=== PATIENT | female | born 1990 | race American Indian/Alaskan Native ===

== ENCOUNTER 2018-02-23 13:13 | Emergency (ER) | payer MEDICAID ==
[2018-02-23 13:27] VITALS: BP 108/71
[2018-02-23 14:53] LABS: HCG Qualitative,Urine Positive (Negative)
--- NOTE | 2018-02-23 14:56 | Emergency Department Report ---
Chief Complaint: Abdominal Pain Stated Complaint: ABD DISCOMFORT 8 WKS PREG Time Seen by Provider: 02/23/18 14:50 - HPI History of Present Illness: 27-year-old AA female presents to the emergency department for evaluation of her . She believes herself to be about 8 weeks . Starting last night she had some very sharp lower abdominal and/or pelvic discomfort that has since resolved. No vaginal bleeding. She does have some thick white vaginal discharge but says this has been going on for weeks. She [facility] to [facility] care. With this she is with one previous done for medical reasons. She is on vitamins. No fever, nausea, vomiting, vaginal bleeding. - ROS Review of Systems: Positive for abd/pelvic cramping, vaginal discharge Negative for vaginal bleeding, N/V, fever - Exam Vital Signs: Vital Signs 02/23/18 13:19 Temperature 98.3 F Pulse Rate 73 Blood Pressure 108/71 O2 Sat by Pulse 100 Oximetry Physical Exam: Heart and lung sounds are normal to auscultation. She does not appear in any acute distress. MSE screening note: Focused history and physical exam performed. Due to findings the following was ordered: Patient's urinalysis does show that she is . She will have a obstetrical ultrasound to confirm intrauterine and assess for any abnormalities. ED Disposition for MSE Condition: Stable Instructions: Abdominal Pain (ED) Referrals: ARLEEN BUSTAMANTE MD [Primary Care Provider] - 3-5 Days
[2018-02-23 15:03] LABS: Bacteria,Urine 1+ /HPF (Negative); Bilirubin,Urine NEG (Negative); Blood,Urine NEG (Negative); Color,Urine Yellow (Yellow); Mucus,Urine 3+ /HPF; Protein,Urine <15 mg/dL mg/dL (Negative); Urobilinogen,Urine < 2.0 mg/dL (<2.0)
--- NOTE | 2018-02-23 15:25 | Emergency Department Report ---
ED HPI - General Chief complaint: Abdominal Pain Stated complaint: ABD DISCOMFORT 8 WKS PREG Time Seen by Provider: 02/23/18 14:50 Source: patient Mode of arrival: Ambulatory Limitations: No Limitations - History of Present Illness Initial comments: This is a 27-year-old female nontoxic, well nourished in appearance, no acute signs of distress presents to the ED with c/o of sharp/cramping pelvic pain x1 day. Patient denies any vaginal bleeding or any radiation of pain. Patient is also c/o of white nonodor vaginal discharge. Patient denies any nausea, vomiting, chest pain, shortness of breathe, fever, chills, headache, stiff neck, numbness, tingling. Patient denies any urinary symptoms. Patient denies any allergies. Denies significant PMH. MD Complaint: abdominal pain -: Last night Location: pelvis Radiation: none Severity: mild Severity scale (0 -10): 8 Quality: aching Improves with: none Worsens with: none Associated symptoms: abdominal pain. denies: nausea/vomiting, vaginal bleeding , vaginal discharge, dysuria, headache, vision changes, malaise, dysparuenia, rash, seizure, shortness of breath, syncope, weakness Vaginal bleeding: none Number of weeks : 8 Pre- care: followed by OB - Related Data Allergies Allergy/AdvReac Type Severity Reaction Status Date / Time No Known Allergies Allergy Unverified 02/23/18 13:27 ED Review of Systems ROS: Stated complaint: ABD DISCOMFORT 8 WKS PREG Other details as noted in HPI Constitutional: denies: chills, fever Eyes: denies: eye pain, eye discharge, vision change ENT: denies: ear pain, throat pain Respiratory: denies: cough, shortness of breath, wheezing Cardiovascular: denies: chest pain, palpitations Endocrine: no symptoms reported Gastrointestinal: abdominal pain. 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 Absent: tenderness, meningismus, lymphadenopathy - Respiratory Respiratory exam: Present: normal lung sounds bilaterally. Absent: respiratory distress, wheezes, rales, rhonchi, stridor, chest wall tenderness, accessory muscle use, decreased breath sounds, prolonged expiratory - Cardiovascular Cardiovascular Exam: Present: regular rate, normal rhythm, normal heart sounds. Absent: bradycardia, tachycardia, irregular rhythm, systolic murmur, diastolic murmur, rubs, gallop - GI/Abdominal GI/Abdominal exam: Present: soft, normal bowel sounds. Absent: distended, tenderness, guarding, rebound, rigid, diminished bowel sounds - Expanded GI/Abdominal Exam Expanded GI/Abdominal exam: Absent: psoas sign, obturator sign, heel tap sign, Johnston's sign, Rovsing's sign, tenderness at [place]bur[place]'s Point, ascites - Rectal Rectal exam: Present: deferred - External exam: Present: normal external exam, other (automobile radio repairer Crystal present during exam). Absent: erythema, swelling, lesions, lacerations, ecchymosis, bleeding Speculum exam: Present: normal speculum exam, cervical discharge (white with no odort), other (automobile radio repairer Crystal present during exam). Absent: erythema, vaginal discharge, vaginal bleeding, foreign body, tissue, laceration Bi-manual exam: Present: normal bi-manual exam, other (automobile radio repairer Crystal present during exam). Absent: cervical motion tendernes, adnexal tenderness, adnexal mass, uterine enlargement, uterine tenderness - Extremities Exam Extremities exam: Present: normal inspection, full ROM, normal capillary refill - Back Exam Back exam: Present: normal inspection, full ROM - Neurological Exam Neurological exam: Present: alert, oriented X3, normal gait - Psychiatric Psychiatric exam: Present: normal affect, normal mood - Skin Skin exam: Present: warm, dry, intact, normal color. Absent: rash ED Course Vital Signs 02/23/18 13:19 Temperature 98.3 F Pulse Rate 73 Blood Pressure 108/71 O2 Sat by Pulse 100 Oximetry - Reevaluation(s) Reevaluation #1: 02/23/18 15:27 Patient is speaking in full sentences with no signs of distress noted. - Consultations Consultation #1: Patient has been consulted with Dr. Sawyer about patient history, physical exam, and labs/US report and examined and screened patient and agrees to ED plan of care and discharge plan of care. ED Medical Decision Making - Medical Decision Making This is a 27-year-old female that presents with demise at 8 weeks. Patient is stable and was examined by me and Dr. Sawyer. Normal abdominal exam. US OB obtained and dictated by the radiologist. Quantative serum test obtained. Patient notified of the US report with no questions noted by the patient. Patient did have 2 ultrasounds done with a positive heart beat in the [facility]/ [facility] office but in the ED radiologist report shows no heart beat. Patient did refuse a transvaginal US because she stated it caused her to have a miscarriage last night. There is no vaginal bleeding. Wet prep obtained and within normal limits. GC pending. I asked the patient for her BAND DIRECTOR contact information and while doing that the patient became very upset after I told her about the US report and patient stated that she "just wants to go home". I instructed and educated the patient of my concerns about wanting to get her BAND DIRECTOR involved but patient left AMA. Critical care attestation.: If time is entered above; I have spent that time in minutes in the direct care of this critically ill patient, excluding procedure time. ED Disposition Clinical Impression: demise Disposition: DC-07 LEFT AGAINST MED ADVICE Is pt being admited?: No Condition: Stable Additional Instructions: Follow-up with a BAND DIRECTOR in 3-5 days or if symptoms worsen and continue return to emergency room as soon as possible.
--- NOTE | 2018-02-23 17:00 | Ultrasound Report ---
FINAL REPORT PROCEDURE: Obstetrical ultrasound. TECHNIQUE: Real-time transabdominal sonography of the uterus, placenta, amniotic fluid, adnexa, and fetus was performed with image documentation. Measurements were obtained to determine age/size. M-mode Doppler was used to document heartbeat. CPT 93400 HISTORY: Abdominal pain, . COMPARISON: No prior studies are available for comparison. FINDINGS: The patient refused a transvaginal exam. The uterus measures 9.4 centimeters x 6.3 centimeters x 7.5 centimeters. The myometrium appears homogeneous. There is an intrauterine gestational sac. A pole and yolk sac are visible. The crown-rump length measurement is 17.1 millimeters. This indicates a menstrual age of 8 weeks 1 day. There is no detectable cardiac activity. Both ovaries appear normal in size. There is normal color flow signal in both ovaries. There is no fluid in the cul-de-sac. IMPRESSION: Intrauterine demise at 8 weeks 1 day.
== END 2018-02-23 17:33 | disposition left against medical advice (07) ==
LOC: ED 13:13
DX: O36.4XX0 Maternal care for intrauterine death, not applicable or unspecified (principal); O99.321 Drug use complicating pregnancy, first trimester; F12.10 Cannabis abuse, uncomplicated; Z3A.08 8 weeks gestation of pregnancy
CPT/HCPCS: 36415; 76801; 81001; 81025; 84702; 87210; 87591

== ENCOUNTER 2018-04-10 05:03 | Emergency (ER) | payer MEDICAID ==
[2018-04-10 05:16] VITALS: BP 112/76
[2018-04-10 05:54] LABS: Basophils % (Auto) 0.4 % (0.0-1.8); Eosinophils # (Auto) 0.2 K/mm3 (0.0-0.4); Eosinophils % (Auto) 3.1 % (0.0-4.3); Hematocrit 33.4 % (30.3-42.9); Hemoglobin 11.4 gm/dl (10.1-14.3); Lymphocytes # (Auto) 2.3 K/mm3 (1.2-5.4); Mean Corpuscular HGB Conc 34 % (30-34); Mean Corpuscular Hemoglobin 33 pg (28-32); Mean Corpuscular Volume 97 fl (79-97); Monocytes # (Auto) 0.5 K/mm3 (0.0-0.8); Monocytes % (Auto) 6.7 % (0.0-7.3); Platelet Count 190 K/mm3 (140-440); Red Blood Count 3.45 M/mm3 (3.65-5.03); Red Cell Distribution Width 13.2 % (13.2-15.2)
[2018-04-10 06:42] LABS: Bacteria,Urine 1+ /HPF (Negative); Bilirubin,Urine NEG (Negative); Blood,Urine MOD (Negative); Color,Urine Yellow (Yellow); Mucus,Urine 2+ /HPF; Protein,Urine <15 mg/dL mg/dL (Negative)
[2018-04-10 07:01] LABS: HCG Qualitative,Urine Positive (Negative)
== END 2018-04-10 05:30 | disposition left against medical advice (07) ==
LOC: ED 05:03
DX: M25.552 Pain in left hip (principal); F12.90 Cannabis use, unspecified, uncomplicated; Z53.21 Procedure and treatment not carried out due to patient leaving prior to being seen by health care provider
CPT/HCPCS: 36415; 81001; 81025; 85025

== ENCOUNTER 2018-10-31 01:42 | Emergency (ER) | payer MEDICAID, OTHER ==
--- NOTE | 2018-10-31 05:38 | Emergency Department Report ---
ED ENT HPI - General Chief complaint: Dental/Oral Stated complaint: ABSCESS IN MOUTH Time Seen by Provider: 10/31/18 05:34 Source: patient Mode of arrival: Ambulatory Limitations: No Limitations - History of Present Illness Initial comments: pt is a 28 y/o aaf who presents for dental carries pain x 1 week seen by employee health provided rx augmentin has taken one tab, rx tramadol has taken 2 tabs, states aching persist, has not seen dentist in 1 yr, symptoms started 1 yr ago. with dental carries to Number: 11, now chronic pain with same, pain is 5/ 10 aching exacerbated by hot and cold stimuli , and eating on affected side, pt is tolerating po on oppposite side however , there is no fever no chills no throat or ear pain no mouth or facial swelling. MD complaint: tooth pain Onset/Timin -: week(s) Location: tooth # (11) Severity: moderate Severity scale (0 -10): 6 Quality: aching Consistency: constant Worsens with: none Context- Dental: history of dental caries, poor dental care Associated Symptoms: toothache. denies: fever, cough, gum swelling, pain with swallowing, sore throat, tinnitus, hearing loss, discharge from ear, rhinorrhea - Related Data Previous Rx's Medication Instructions Recorded Last Taken Type Chlorhexidine Mouthwash [Peridex] 15 ml MM BID PRN #1 bottle 10/31/18 Unknown Rx Allergies Allergy/AdvReac Type Severity Reaction Status Date / Time No Known Allergies Allergy Verified 04/10/18 05:08 ED Dental HPI - General Chief complaint: Dental/Oral Stated complaint: ABSCESS IN MOUTH Time Seen by Provider: 10/31/18 05:34 Source: patient Mode of arrival: Ambulatory Limitations: No Limitations - Related Data Previous Rx's Medication Instructions Recorded Last Taken Type Chlorhexidine Mouthwash [Peridex] 15 ml MM BID PRN #1 bottle 10/31/18 Unknown Rx Allergies Allergy/AdvReac Type Severity Reaction Status Date / Time No Known Allergies Allergy Verified 04/10/18 05:08 ED Review of Systems ROS: Stated complaint: ABSCESS IN MOUTH Other details as noted in HPI Constitutional: denies: chills, fever Eyes: denies: eye pain, eye discharge, vision change ENT: dental pain Respiratory: denies: cough, shortness of breath, wheezing Cardiovascular: denies: chest pain, palpitations Endocrine: no symptoms reported Gastrointestinal: denies: abdominal pain, nausea, diarrhea Genitourinary: denies: urgency, dysuria, discharge Musculoskeletal: denies: back pain, joint swelling, arthralgia Skin: denies: rash, lesions Neurological: denies: headache, weakness, paresthesias Psychiatric: denies: anxiety, depression Hematological/Lymphatic: denies: easy bleeding, easy bruising ED Past Medical Hx - Past Medical History Previous Medical History?: Yes Additional medical history: Anemia with preganacy, - Surgical History Additional Surgical History: @ 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, left ankle sx - Social History Smoking Status: Never Smoker Substance Use Type: None - Medications Home Medications: Home Medications Medication Instructions Recorded Confirmed Last Taken Type Chlorhexidine Mouthwash [Peridex] 15 ml MM BID PRN #1 bottle 10/31/18 Unknown Rx ED Physical Exam - General Limitations: No Limitations General appearance: alert, in no apparent distress - Head Head exam: Present: atraumatic, normocephalic - Eye Eye exam: Present: normal appearance, PERRL, EOMI Pupils: Present: normal accommodation - ENT ENT exam: Present: mucous membranes moist, TM's normal bilaterally, normal external ear exam - Expanded ENT Exam Expanded Mouth exam: Absent: trismus Teeth exam: Present: dental caries (11), fractured tooth # (11), dental tenderness # (11) Throat exam: Positive: normal inspection, other (uvula midline no stridor ). Negative: tonsillar erythema, tonsillomegaly, tonsillar exudate, R peritonsillar mass, L peritonsillar mass - Neck Neck exam: Present: normal inspection, full ROM. Absent: tenderness, meningismus, lymphadenopathy, thyromegaly - Respiratory Respiratory exam: Present: normal lung sounds bilaterally. Absent: respiratory distress, wheezes, stridor, chest wall tenderness - Cardiovascular Cardiovascular Exam: Present: regular rate, normal rhythm, normal heart sounds. Absent: systolic murmur, diastolic murmur, rubs, gallop - GI/Abdominal GI/Abdominal exam: Present: soft, normal bowel sounds - Rectal Rectal exam: Present: deferred - Extremities Exam Extremities exam: Present: normal inspection - Back Exam Back exam: Present: normal inspection, full ROM. Absent: tenderness, CVA tenderness (R), CVA tenderness (L) - Neurological Exam Neurological exam: Present: alert, oriented X3, CN II-XII intact, normal gait - Psychiatric Psychiatric exam: Present: normal affect, normal mood - Skin Skin exam: Present: warm, dry, intact, normal color. Absent: rash ED Course Vital Signs 10/31/18 01:46 Temperature 98.7 F Pulse Rate 59 L Respiratory 16 Rate Blood Pressure 124/70 O2 Sat by Pulse 99 Oximetry - Nerve Block Consent Obtained: verbal consent Time Out Performed: Yes Local Anesthetic Used: Lidocaine 1% Amount of anesthesia used: 1 Side: left Nerve Blocks: other (dental block ) Procedure Successful: Yes Complications: none Patient Tolerated Procedure: well Additional Comments: dental block with lidocaine 1% 1 cc Infraorbital successful block to pain improved /relieved bleeding is controlled, pt tolerated procedure with minimal distress. ED Medical Decision Making - Medical Decision Making this case is infected dental carries pt currently rx augment 875 mg po bid for 10 days has taken 1 tab, tramadol prn pain, will add peridex mouth rinse and referral to [facility] pt will follow up with same in 1-2 days pt verbalized agreement and understanding of same, pt for dc to home in stable conditon at this time. Critical care attestation.: If time is entered above; I have spent that time in minutes in the direct care of this critically ill patient, excluding procedure time. ED Disposition Clinical Impression: Infected dental carries Disposition: DC-01 TO HOME OR SELFCARE Is pt being admited?: No Does the pt Need Aspirin: No Condition: Stable Instructions: Dental Caries (ED) Prescriptions: Chlorhexidine Mouthwash [Peridex] 15 ml MM BID PRN #1 bottle PRN Reason: pain Referrals: [facility] [Outside] - 3-5 Days Forms: Work/School Release Form(ED) Time of Disposition: 05:48
[2018-10-31] MEDS ORDERED: TORADOL IM ONE (05:51)
[2018-11-01 13:13] VITALS: BP 136/76
== END 2018-10-31 06:12 | disposition home or self-care (01) ==
LOC: ED 01:42
DX: K02.9 Dental caries, unspecified (principal); K04.7 Periapical abscess without sinus
CPT/HCPCS: 64400; 96372; 99282; J1885